=== PATIENT | male | born 1970 | race Caucasian/White ===

== ENCOUNTER 2017-06-11 13:01 | Observation (INO) | payer OTHER ==
[2017-06-11] MEDS: ONDANSETRON 4 MG/2 ML VIAL IVP ONE (13:41)
--- NOTE | 2017-06-11 13:45 | EDPHY ---
H & P Stated Complaint: RUQ pain Time Seen by Provider: 06/11/17 13:22 - Personal History Current Tetanus/Diphtheria Vaccine: Yes Current Tetanus Diphtheria and Acellular Pertussis (TDAP): Yes - Medical/Surgical History Hx Asthma: No Hx Chronic Respiratory Disease: No Hx Diabetes: No Hx Cardiac Disease: Yes Hx Renal Disease: No Hx Cirrhosis: No Hx Alcoholism: No Hx HIV/AIDS: No Hx Splenectomy or Spleen Trauma: No Other PMH: HTN, asthma,. ?genetic defect of coronary artery - Social History Smoking Status: Never smoked Constitutional: Initial Vital Signs Temperature (C) 36.7 C 06/11/17 13:18 Heart Rate 93 06/11/17 13:18 Respiratory Rate 16 06/11/17 13:18 Blood Pressure 134/80 H 06/11/17 13:18 O2 Sat (%) 97 06/11/17 13:18 O2 Delivery Mode Room Air Allergies/Adverse Reactions: Penicillins Allergy (Unknown, Verified 06/11/17 13:17) Sulfa (Sulfonamide Antibiotics) Allergy (Unknown, Verified 06/11/17 13:17) Home Medications: Medication Instructions Recorded Aspirin [Aspirin 81mg (*)] 81 mg PO BID 11/04/13 [place]-3 Fatty Acids [Fish Oil 1000 1,000 mg PO BID 11/04/13 mg (*)] Magnesium Oxide [Magnesium] 400 mg PO HS 03/03/16 Metoprolol Tartrate [Lopressor 25 25 mg PO BID 03/03/16 mg (*)] Multivitamins [Multivitamin (*)] 1 tab PO DAILY 03/03/16 Lisinopril 10 mg PO DAILY #30 tablet 03/04/16 Atorvastatin Calcium [Lipitor 10 10 mg PO DAILY 06/11/17 mg (*)] Ubidecarenone [Coenzyme Q10] 200 mg PO BID 06/11/17 Medical Decision Making - Diagnostics Imaging Results: Imaging Impressions Abdomen Ultrasound 06/11/17 13:50 Impression: 1. Gallbladder sludge without evidence of cholecystitis. 2. Probable fatty infiltration of the liver. 3. Simple right renal cyst. Findings discussed with Kojo Boykin MD, on 06/11/2017 at 14:43. Hepatobiliary Scan Nuclear Medicine 06/11/17 15:06 Impression: 1. Gallbladder dysfunction. 2. No scintigraphic evidence of acute or chronic cholecystitis or biliary obstruction. Findings discussed with Emergency Department physician, Kojo Boykin MD at 06/11/2017 18:00. Imaging: Discussed imaging studies w/ call center consultant Radiologist ED Course/Re-evaluation: CHIEF COMPLAINT: "Knife to the gallbladder" HISTORY OF PRESENT ILLNESS: This patient is a 46 year old male arriving with his complaining of severe abdominal pain beginning this morning. On waking this morning, he felt nauseous , but had coffee and went to work as usual around 6:15am. His nausea worsened and he developed epigastric pain. He left work and arrived home around 11:30, and his pain continued to become more severe. He rates his discomfort at 10/10 severity at that time, and felt febrile with associated chills. He vomited around 12:15 which relieved his pain slightly. Now, his pain is returning, and he rates it around 6/10 severity. It does not change with movement. He continues to feel nauseous. He has similar episodes of upper abdominal pain in 2012 and 2014 which were less severe. He denies any prior abdominal surgery. He denies any recent illness, diarrhea, chest pain, shortness of breath, or other associated symptoms. REVIEW OF SYSTEMS: A 10 point review of systems was performed and is negative with the exception of the elements mentioned in the history of present illness. PHYSICAL EXAM: HR, BP, O2 Sat, RR. Temp noted General Appearance: Alert, well hydrated, appropriate, and non-toxic appearing. Head: Atraumatic without scalp tenderness or obvious injury Eyes: Pupils equal, round, reactive to light and accommodation, EOMI, no trauma , no injection. Ears: Clear bilaterally, no perforation, normal landmarks Nose: Atraumatic, no rhinorrhea, clear. Throat: There is no erythema or exudates, no lesions, normal tonsils, mucus membranes moist. Neck: Supple, 2+ carotid upstroke, nontender, no lymphadenopathy. Respiratory: No retractions, no distress, no wheezes, and no accessory muscle use. Lungs are clear to auscultation bilaterally. Cardiovascular: Regular rate and rhythm, no murmurs, rubs, or gallops. Bilateral carotid, radial, dorsalis pedis, and posterior tibial pulses intact. Good capillary refill all extremities. Gastrointestinal: Epigastric tenderness. Fully reducible umbilical hernia. Not incarcerated. Abdomen is soft, non-distended. no masses, no rebound, no guarding, no peritoneal signs. Musculoskeletal: Normal active ROM of all extremities, atraumatic. Neurological: Alert, appropriate, and interactive. The patient has normal DTRs and non-focal cranial nerves, motor, sensory, and cerebellar exam. Skin: No rashes, good turgor, no nodules on palpation. Past medical history: Hypertension. Asthma. Umbilical hernia. Past surgical history: Noncontributory. Family history: Cholecystitis in mother, cholecystectomy in father. Social history: at bedside. PCP Dr. Denson. DIAGNOSTICS/PROCEDURES/CRITICAL CARE TIME: DIFFERENTIAL DIAGNOSIS: The differential diagnosis for the patient's abdominal pain included but was not limited to appendicitis, cholecystitis, hernias, testicular torsion, gastritis, and urinary tract infection. MEDICAL DECISION MAKING: This 46 y/o male presents with 8 hour history of epigastric and right upper quadrant pain with associated nausea. Exam reveals tenderness over the gallbladder. Plan for US gallbladder, labs including CBC, BMP, liver, lipase, coag. Plan to administer 1mg IV Dilaudid, 30mg IV Ketorolac, 1L IV NS for symptom relief. Elevated WBC 11.89 with left shift. Plan to administer 1 gram IV Ertapenem. 14:[address] Man, general surgeon. He will consult the patient. Liver and lipase not elevated. 14:[address] Baxter, radiologist. No evidence of cholelithiasis or other acute findings. 15:[address] Man, general surgeon. He requests HIDA study w/ pharmaceuticals. 15:45 Reassessed patent. Discussed imaging results. 17:[address] Vickers, radiologist. HIDA shows 8% ejection fraction. Surgical cutoff is 35%. Plan to consult with Dr. Man, general surgeon. 18:[address] Man, general surgeon. He will admit the patient for cholecystitis and perioperative care. 18:47 Reassessed patient. Discussed surgical intervention, admission. Dr. Man will consult. - Data Points Laboratory Results: Laboratory Results 06/11/17 13:37 06/11/17 13:37 06/11/17 06/11/17 06/11/17 13:37 13:37 13:37 WBC 11.89 10^3/uL H 10^3/uL (3.80-9.50) RBC 5.35 10^6/uL 10^6/uL (4.40-6.38) Hgb 16.4 g/dL g/dL (13.7-17.5) Hct 47.2 % % (40.0-51.0) MCV 88.2 fL fL (81.5-99.8) MCH 30.7 pg pg (27.9-34.1) MCHC 34.7 g/dL g/dL (32.4-36.7) RDW 12.6 % % (11.5-15.2) Plt Count 301 10^3/uL 10^3/uL (150-400) MPV 9.2 fL fL (8.7-11.7) Neut % (Auto) 90.6 % H % (39.3-74.2) Lymph % (Auto) 3.4 % L % (15.0-45.0) [place] % (Auto) 3.4 % L % (4.5-13.0) Eos % (Auto) 1.9 % % (0.6-7.6) Baso % (Auto) 0.3 % % (0.3-1.7) Nucleat RBC Rel Count 0.0 % % (0.0-0.2) Absolute Neuts (auto) 10.75 10^3/uL H 10^3/uL (1.70-6.50) Absolute Lymphs (auto) 0.41 10^3/uL L 10^3/uL (1.00-3.00) Absolute Monos (auto) 0.41 10^3/uL 10^3/uL (0.30-0.80) Absolute Eos (auto) 0.23 10^3/uL 10^3/uL (0.03-0.40) Absolute Basos (auto) 0.04 10^3/uL 10^3/uL (0.02-0.10) Absolute Nucleated RBC 0.00 10^3/uL 10^3/uL (0-0.01) Immature Gran % 0.4 % % (0.0-1.1) Immature Gran # 0.05 10^3/uL 10^3/uL (0.00-0.10) PT 13.3 SEC SEC (12.0-15.0) INR 0.99 (0.83-1.16) APTT 23.4 SEC SEC (23.0-38.0) Sodium 140 mEq/L mEq/L (134-144) Potassium 4.3 mEq/L mEq/L (3.5-5.2) Chloride 104 mEq/L mEq/L (97-110) Carbon Dioxide 24 mEq/l mEq/l (22-31) Anion Gap 12 mEq/L mEq/L (8-16) BUN 14 mg/dL mg/dL (7-23) Creatinine 1.1 mg/dL mg/dL (0.7-1.3) Estimated GFR > 60 Glucose 96 mg/dL mg/dL (70-100) Calcium 9.6 mg/dL mg/dL (8.5-10.4) Total Bilirubin 1.2 mg/dL mg/dL (0.1-1.4) Conjugated Bilirubin 0.2 mg/dL mg/dL (0.0-0.5) Unconjugated Bilirubin 1.0 mg/dL mg/dL (0.0-1.1) AST 26 IU/L IU/L (17-59) ALT 43 IU/L IU/L (21-72) Alkaline Phosphatase 80 IU/L IU/L (38-126) Total Protein 7.3 g/dL g/dL (6.3-8.2) Albumin 4.5 g/dL g/dL (3.5-5.0) Lipase 66 IU/L IU/L (23-300) Medications Given: Discontinued Medications Ertapenem (Invanz) 1 gm IVP EDNOW ONE PRN Reason: Protocol Stop: 06/11/17 13:52 Last Admin: 06/11/17 14:26 Dose: 1 gm Hydromorphone HCl (Dilaudid) 1 mg IVP EDNOW ONE Stop: 06/11/17 13:47 Last Admin: 06/11/17 13:58 Dose: 1 mg Sodium Chloride (Ns) 1,000 mls @ 0 mls/hr IV EDNOW ONE; Wide Open PRN Reason: Protocol Stop: 06/11/17 13:47 Last Admin: 06/11/17 13:59 Dose: 1,000 mls Ketorolac Tromethamine (Toradol) 30 mg IVP EDNOW ONE Stop: 06/11/17 13:47 Last Admin: 06/11/17 13:58 Dose: 30 mg Ondansetron HCl (Zofran) 4 mg IVP EDNOW ONE Stop: 06/11/17 13:30 Last Admin: 06/11/17 13:41 Dose: 4 mg Departure - Departure Disposition: [facility] Inpatient Acute Clinical Impression: Acute cholecystitis Condition: Fair Report Scribed for: Kojo Boykin Report Scribed by: Lula Bartlett Date of Report: 06/11/17 Time of Report: 13:45
[2017-06-11] MEDS ORDERED: HYDROmorphONE/DILAUDID 1 MG/ML INJ IVP ONE (13:46)
[2017-06-11] MEDS ORDERED: KETOROLAC 30 MG/1 ML SDV IVP ONE (13:46)
[2017-06-11] MEDS ORDERED: NS 1,000 ML IV ONE (13:46)
[2017-06-11] MEDS ORDERED: ERTAPENEM 1 GM VIAL IVP ONE (13:51)
[2017-06-11] MEDS ORDERED: KETOROLAC 30 MG/1 ML SDV ONE (13:52)
[2017-06-11 13:59] LABS: % IMMATURE GRANULYOCYTES 0.4 % (0.0-1.1); ABSOLUTE IMMATURE GRANULOCYTES 0.05 10^3/uL (0.00-0.10); ADD DIFF? NO; ADD MORPH? NO; ADD SCAN? NO; ATYPICAL LYMPHOCYTE FLAG 0 (0-99); FRAGMENT RBC FLAG 0 (0-99); HEMATOCRIT 47.2 % (40.0-51.0); HEMOGLOBIN 16.4 g/dL (13.7-17.5); LEFT SHIFT FLG 0 (0-99); LIPEMIA HEMOLYSIS FLAG 90 (0-99); MEAN CELL HEMOGLOBIN 30.7 pg (27.9-34.1); MEAN CELL HEMOGLOBIN CONCENTR. 34.7 g/dL (32.4-36.7); MEAN CELL VOLUME 88.2 fL (81.5-99.8); MEAN PLATELET VOLUME 9.2 fL (8.7-11.7); PLATELET CLUMPS FLAG 0 (0-99); PLATELET COUNT 301 10^3/uL (150-400); RED BLOOD CELL COUNT 5.35 10^6/uL (4.40-6.38); RED CELL DISTRIBUTION WIDTH 12.6 % (11.5-15.2)
[2017-06-11 14:05] LABS: ALANINE AMINOTRANSFERASE 43 IU/L (21-72); ALBUMIN 4.5 g/dL (3.5-5.0); ALKALINE PHOSPHATASE 80 IU/L (38-126); ANION GAP 12 mEq/L (8-16); ASPARTATE AMINOTRANSFERASE 26 IU/L (17-59); BILIRUBIN,TOTAL 1.2 mg/dL (0.1-1.4); BILIRUBIN-CONJUGATED 0.2 mg/dL (0.0-0.5); CALCIUM 9.6 mg/dL (8.5-10.4); CARBON DIOXIDE 24 mEq/l (22-31); CHLORIDE 104 mEq/L (97-110); CREATININE 1.1 mg/dL (0.7-1.3); GLOMERULAR FILTRATION RATE > 60; GLUCOSE 96 mg/dL (70-100); POTASSIUM 4.3 mEq/L (3.5-5.2); SODIUM 140 mEq/L (134-144); TOTAL PROTEIN 7.3 g/dL (6.3-8.2)
[2017-06-11 14:19] LABS: INR 0.99 (0.83-1.16); PROTIME(PATIENT) 13.3 SEC (12.0-15.0)
[2017-06-11 14:20] LABS: APTT 23.4 SEC (23.0-38.0)
[2017-06-11] MEDS ORDERED: SINCALIDE 5 MCG VIAL IJ ONE (15:30)
[2017-06-11] MEDS ORDERED: ONDANSETRON 4 MG/2 ML VIAL IVP PRN (18:10)
[2017-06-11] MEDS ORDERED: HYDROmorphone HCL/NS/PF 0.4 MG/2 ML SYR IVP PRN ×2 (18:10→23:26)
[2017-06-11] MEDS ORDERED: OXYCODONE/APAP 5/325 TAB PO PRN (18:10)
[2017-06-11] MEDS ORDERED: HYDROCODONE/APAP 5/325 TAB PO PRN (18:10)
[2017-06-11] MEDS: D5W 1/2 NS W/ 20 KCl/L 1,000 ML IV SCH (23:11)
[2017-06-11] MEDS ORDERED: D5W 1/2 NS W/ 20 KCl/L 1,000 ML IV SCH (23:30)
--- NOTE | 2017-06-11 23:33 | SOAPPROG ---
SOAP Progress Note Assessment/Plan: Assessment: 46 male with recurrent ruq pain and possible cholecystitis us neg for stones/ hida fills but 8% ef/ lfts ok/ wbc 12k nonicteric/ vs sable/ afebrile/ chest clear/ abd with ruq tenderness and guarding risks and options fully discussed Plan:admit for obs and possible lap kathrine 06/11/17 Objective: Vital Signs Temp Pulse Resp BP Pulse Ox 37.7 C 79 18 118/67 92 06/11/17 23:07 06/11/17 23:07 06/11/17 23:07 06/11/17 23:07 06/11/17 23:07 06/10/17 06/11/17 06/12/17 05:59 05:59 05:59 Intake Total 1000 Balance 1000 PT 13.3 SEC (12.0-15.0) 06/11/17 13:37 INR 0.99 (0.83-1.16) 06/11/17 13:37 ICD10 Worksheet Patient Problems: Problems Problem Status Onset Acute cholecystitis Acute Anomaly, circulatory system Acute Chest pain Acute
[2017-06-12 05:05] LABS: % IMMATURE GRANULYOCYTES 0.3 % (0.0-1.1); ABSOLUTE IMMATURE GRANULOCYTES 0.02 10^3/uL (0.00-0.10); ADD DIFF? NO; ADD MORPH? NO; ADD SCAN? NO; ATYPICAL LYMPHOCYTE FLAG 0 (0-99); FRAGMENT RBC FLAG 0 (0-99); HEMOGLOBIN 13.7 g/dL (13.7-17.5); LEFT SHIFT FLG 0 (0-99); LIPEMIA HEMOLYSIS FLAG 90 (0-99); MEAN CELL HEMOGLOBIN 30.2 pg (27.9-34.1); MEAN CELL HEMOGLOBIN CONCENTR. 34.3 g/dL (32.4-36.7); MEAN CELL VOLUME 88.3 fL (81.5-99.8); MEAN PLATELET VOLUME 9.5 fL (8.7-11.7); PLATELET CLUMPS FLAG 10 (0-99); PLATELET COUNT 237 10^3/uL (150-400); RED BLOOD CELL COUNT 4.53 10^6/uL (4.40-6.38); RED CELL DISTRIBUTION WIDTH 12.5 % (11.5-15.2)
[2017-06-12 05:19] LABS: ALANINE AMINOTRANSFERASE 35 IU/L (21-72); ALBUMIN 3.2 g/dL (3.5-5.0); ALKALINE PHOSPHATASE 54 IU/L (38-126); AMYLASE < 30 IU/L (30-110); ANION GAP 10 mEq/L (8-16); ASPARTATE AMINOTRANSFERASE 20 IU/L (17-59); BILIRUBIN,TOTAL 1.2 mg/dL (0.1-1.4); BILIRUBIN-CONJUGATED 0.2 mg/dL (0.0-0.5); CALCIUM 8.5 mg/dL (8.5-10.4); CARBON DIOXIDE 26 mEq/l (22-31); CHLORIDE 104 mEq/L (97-110); CREATININE 1.2 mg/dL (0.7-1.3); GLOMERULAR FILTRATION RATE > 60; GLUCOSE 96 mg/dL (70-100); POTASSIUM 4.3 mEq/L (3.5-5.2); SODIUM 140 mEq/L (134-144); TOTAL PROTEIN 5.9 g/dL (6.3-8.2)
[2017-06-12] MEDS: D5W 1/2 NS W/ 20 KCl/L 1,000 ML IV SCH (06:44)
[2017-06-12] MEDS ORDERED: LISINOPRIL 10 MG TAB PO SCH (09:00)
[2017-06-12] MEDS ORDERED: METOPROLOL TARTRATE 25 MG TAB PO SCH (09:00)
[2017-06-12] MEDS ORDERED: ATORVASTATIN CALCIUM 10 MG TAB PO SCH (09:00)
[2017-06-12] MEDS ORDERED: ERTAPENEM 1 GM VIAL IVP SCH (10:45)
[2017-06-12] MEDS ORDERED: PNEUMOCOCCAL 0.5ML VACCINE VIAL IM ONE (11:36)
--- NOTE | 2017-06-12 13:21 | PDANEPAE ---
ANE History of Present Illness 46 year old male for lap kathrine. ANE Past Medical History - Cardiovascular History Hx Hypertension: Yes Hx Chest Pain: Yes Cardiovascular History Comment: [place] Coronary Artery - Pulmonary History Hx COPD: No Hx Asthma/Reactive Airway Disease: Yes Hx Recent Upper Respiratory Infection: No Hx Oxygen in Use at Home: No Hx Sleep Apnea: Yes Sleep Apnea Screening Result - Last Documented: Positive Pulmonary History Comment: Childhood asthma - Endocrine History Hx Diabetes: No Hypothyroid: No Hyperthyroid: No Obesity: no - Renal History Hx Renal Disorders: No - Neurological & Psychiatric Hx Hx Neurological and Psychiatric Disorders: No - GI History GERD: no Hx Gastrointestinal Disorders: No - Chronic Pain History Chronic Pain: No ANE Review of Systems Review of systems is: negative Review of Systems: - Exercise capacity Exercise capacity: >=4 METS ANE Patient History - Allergies Allergies/Adverse Reactions: Penicillins Allergy (Unknown, Verified 06/11/17 13:17) Sulfa (Sulfonamide Antibiotics) Allergy (Unknown, Verified 06/11/17 13:17) - Home Medications Home medications: home medication list seen and reviewed Home Medications: RX: Aspirin [Aspirin 81mg (*)] 81 mg PO BID 11/04/13 [Last Taken 06/11/17 09:00] RX: [place]-3 Fatty Acids [Fish Oil 1000 mg (*)] 1,000 mg PO BID 11/04/13 [Last Taken 06/11/17 09:00] RX: Magnesium Oxide [Magnesium] 400 mg PO HS 03/03/16 [Last Taken 06/10/17] RX: Metoprolol Tartrate [Lopressor 25 mg (*)] 25 mg PO BID 03/03/16 [Last Taken 06/11/17 09:00] RX: Multivitamins [Multivitamin (*)] 1 tab PO DAILY 03/03/16 [Last Taken ] Atorvastatin Calcium [Lipitor 10 mg (*)] 10 mg PO DAILY 06/11/17 [Last Taken ] Ubidecarenone [Coenzyme Q10] 200 mg PO BID 06/11/17 [Last Taken 06/11/17 09:00] - NPO status NPO Status: no food or drink >8 hours NPO Since - Liquids (Date): 06/12/17 NPO Since - Liquids (Time): 06:00 NPO Since - Solids (Date): 06/12/17 NPO Since - Solids (Time): 06:00 - Anes Hx Anes Hx: no prior problems - Smoking Hx Smoking Status: Never smoked Marijuana use: No - Alcohol Use Alcohol Use: Occasionally - Family Anes Hx Family Anes Hx: neg - N/A ANE Labs/Vital Signs - Labs Result Diagrams: 06/12/17 04:27 06/12/17 04:27 - Vital Signs Vital Signs: reviewed preoperatively; see RN documention for details Blood Pressure: 116/75 Heart Rate: 57 Respiratory Rate: 16 O2 Sat (%): 99 Height: 195.58 cm Weight: 250 kg ANE Physical Exam - Airway Neck exam: FROM Mallampati Score: Class 2 - Pulmonary Pulmonary: no respiratory distress - Cardiovascular Cardiovascular: regular rate and rhythym - ASA Status ASA Status: II ANE Anesthesia Plan Anesthesia Plan: general endotracheal anesthesia Total IV Anesthesia: No
[2017-06-12] MEDS ORDERED: HEPARIN 1000 UNIT/1 ML MDV ONE ×2 (13:45→14:08)
[2017-06-12] MEDS ORDERED: BUPIVACAINE 0.5% 30 ML SDV ONE (13:45)
[2017-06-12] MEDS ORDERED: ceFAZolin 1 GM/5 ML SYR ONE (13:46)
[2017-06-12] MEDS ORDERED: MIDAZOLAM 2 MG/2 ML VIAL IVP ONE (13:54)
[2017-06-12] MEDS ORDERED: PROPOFOL/EMULSION 500 MG/50 ML BOTTLE IV ONE (14:03)
[2017-06-12] MEDS ORDERED: fentaNYL 100 MCG/2 ML INJ ONE ×2 (14:03→14:31)
[2017-06-12] MEDS ORDERED: DEXAMETHASONE 4 MG/ML VIAL ONE (14:28)
[2017-06-12] MEDS ORDERED: ONDANSETRON 4 MG/2 ML VIAL ONE (14:28)
--- NOTE | 2017-06-12 14:29 | PDHPUP ---
History & Physical Update H&P update statement: This history and physical update is based on an assessment of the patient which was completed after admission or registration (within 24 hours), but prior to the surgery/procedure. updated
[2017-06-12] MEDS ORDERED: ROCURONIUM 50 MG/5 ML VIAL ONE ×2 (14:32)
[2017-06-12] MEDS ORDERED: PHENYLEPHRINE HCL 100 MCG/ML SYR ONE (14:38)
[2017-06-12] MEDS ORDERED: PROPOFOL 200 MG/20 ML VIAL ONE (14:44)
[2017-06-12] MEDS ORDERED: fentaNYL 100 MCG/2 ML INJ IVP PRN (14:49)
[2017-06-12] MEDS ORDERED: OXYCODONE/APAP 5/325 TAB PO PRN (14:49)
[2017-06-12] MEDS ORDERED: ONDANSETRON 4 MG/2 ML VIAL IVP PRN (14:49)
[2017-06-12] MEDS ORDERED: LR 500 ML IV PRN (14:49)
[2017-06-12] MEDS ORDERED: NALOXONE HCL 0.4 MG/ML INJ IVP PRN (14:49)
[2017-06-12] MEDS ORDERED: HYDROmorphONE/DILAUDID 1 MG/ML INJ IVP PRN (14:49)
[2017-06-12] MEDS ORDERED: KETOROLAC 30 MG/1 ML SDV ONE (14:57)
[2017-06-12 15:36] VITALS: TEMP 99
--- NOTE | 2017-06-12 15:41 | ASMTCMCOM ---
CM Note CM Note Notes: Spoke w/RN, anticipate pt will dc home w/support of when medically stable. CM available for any changes. Date Signed: 06/12/2017 03:40 PM Electronically Signed By:Naye Oliva RN
[2017-06-12 16:26] VITALS: BP 124/73; O2SAT 96
[2017-06-12 16:27] VITALS: PULSE 71; RESP 14
--- NOTE | 2017-06-12 16:36 | POSTANESTH ---
Post Anesthetic Evaluation Cardiovascular Status: Normal, Stable, Similar to Pre-Op Cond Respiratory Status: Normal, Stable, Similar to Pre-op Cond. Level of Consciousness/Mental Status: Can Participate in Eval, Alert and Oriented Pain Control: Adequate, Prn Tx Ordered Nausea/Vomiting Control: Adequate, Prn Tx Ordered Complications Possibly Related to Anesthesia: None Noted
--- NOTE | 2017-06-12 17:02 | ASDISCHSUM ---
Discharge Information Plan Status:Home with No Needs Medically Cleared to Leave: Discharge Date:06/12/2017 03:58 PM CM D/C Disposition:Home, Routine, Self-Care ADT D/C Disposition:Home, Routine, Self-Care Projected Discharge Date:06/12/2017 03:58 PM Transportation at D/C: Discharge Delay Reason: Follow-Up Date:06/12/2017 03:58 PM Discharge Slot: Final Diagnosis: Placement Information Patient Contact Information Contact Name:ALANA Relationship: Address:[address] [place]:[facility] Phone: [facility]/Zip Code:[place] [address] Email: Financial Information Financial Class:[facility] Primary Plan Desc:[employer] LOCAL Primary Plan Number:[id number] Secondary Plan Desc: Secondary Plan Number: Assessment Information [facility] CM Progress Note CM Note CM Note Notes: Spoke w/RN, anticipate pt will dc home w/support of when medically stable. CM available for any changes. Date Signed: 06/12/2017 03:40 PM Electronically Signed By:Naye Oliva RN Intervention Information
--- NOTE | 2017-06-14 06:51 | GOP ---
[f rep st] OPERATIVE REPORT DATE OF OPERATION: 06/12/2017 SURGEON: Jamin Man MD BUSINESS ADMINISTRATION INSTRUCTOR: MATTHEW Hoskins ANESTHESIOLOGIST: Efrain Trevino MD PREOPERATIVE DIAGNOSIS: Acalculous cholecystitis and biliary dyskinesia. POSTOPERATIVE DIAGNOSIS: Acalculous cholecystitis and biliary dyskinesia, incarcerated umbilical hernia. PROCEDURE PERFORMED: 1. Laparoscopic cholecystectomy. 2. Open repair of umbilical incarcerated hernia. FINDINGS: Patient was found to have a distended gallbladder covered with adhesions, had a very small fibrotic looking cystic duct and normal cystic artery. The remainder of the ducts were normal. He also had a 1.5 cm umbilical hernia with incarcerated properitoneal fat. ESTIMATED BLOOD LOSS: From both procedures was less than 20 cc. He was taken to the recovery room in good condition. There were no complications. DESCRIPTION OF PROCEDURE: The patient is taken to the operating room where he received satisfactory general endotracheal anesthesia by Dr. Trevino. He was placed in the supine position, prepped and draped in usual sterile fashion. A transverse incision was made over the umbilical hernia defect. Dissection was extended down through the subcutaneous tissue and the sac was dissected free from its surrounding subcutaneous tissue, back to the fascia level where the sac was opened. A portion of the hernia sac was amputated after being ligated with 3-0 Vicryl tie. 10mm trocar was introduced and pneumoperitoneum was established. 3 other trocars were placed under direct vision. gallbladder was elevated and freed from adhesions. cystic triangle was carefully dissected free. clear view was obtained and the cystic duct and artery were hemoclipped and divided with care to avoid injury to the common duct which was clearly seen. gallbladder was then dissected free from hepatic fossa and extracted through the umbilical site. hemostasis was assured. The fascial edges were freshened up. The gallbladder had already been removed and the hernia defect was closed directly with interrupted 0 Surgilon in [id number] sutures. The wound was infiltrated with 0.5% Marcaine, subcu was closed with 3-0 Vicryl, and the skin with a 4-0 Monocryl subcuticular stitch. He tolerated the procedure well. There were no complications. /[id number]/MODL MTDD
--- NOTE | 2017-06-16 15:15 | GHP ---
[f rep st] PREOP HISTORY AND PHYSICAL DATE OF ADMISSION: 06/11/2017 HISTORY OF PRESENT ILLNESS: The patient is a 46-year-old male who is having recurrent right upper qu adrant pain and possible acalculous cholecystitis. His ultrasound was reveals a thickened gallbladde r, but no definite stone. LFTs are normal. His white count is elevated at 12,000. He had a HIDA sc an done in the ER, which reveals an ejection fraction of only 8%. He was admitted at this time [facility] of abdominal pain for further evaluation. The risks and options have been fully discussed, includ ing the failure to relieve his symptoms with cholecystectomy. PAST MEDICAL HISTORY: Reveals no major surgeries, except for orthopedic repair. Past history includ es hypertension and asthma. ALLERGIES: Include penicillin and sulfa. PRESENT MEDICATIONS: Metoprolol, aspirin, Lipitor, lisinopril, multivitamins, and CoQ10. FAMILY HISTORY: Noncontributory. REVIEW OF SYSTEMS: Reveals no additional medical problems on a full 10-point review of systems. Spe cifically, he does not smoke. Denies any cardiac symptoms. PHYSICAL EXAMINATION: GENERAL: An alert 46-year-old male who is in no acute distress and afebrile. VITAL SIGNS: Blood pressure 130/80. HEENT: Exam reveals him to be nonicteric with normal pupils, n o adenopathy, and no thyromegaly. NECK: Supple, nontender, without bruits. CHEST: Clear and symme tric. CARDIAC: Exam was a regular rhythm. ABDOMEN: Soft, slightly tender in the right upper quadr ant, with some fullness, mild distention. Positive bowel sounds. No obvious hernias. GENITALIA: N ormal. EXTREMITIES: Benign, with full pulses and full range of motion. SKIN: Intact, without lesi ons. NEUROLOGIC: Exam is physiologic and symmetric. IMPRESSION: Possible symptomatic acalculous cholecystitis. PLAN: Admit for observation and re-evaluation, possible laparoscopic cholecystectomy. The risks and options have been fully discussed, and he wishes to proceed. /[id number]/MODL
== END 2017-06-12 15:58 | disposition home or self-care (01) ==
LOC: F3E 19:55
PROVIDERS: ADMIT Surgery; ATTEND Surgery
DX: K81.0 Acute cholecystitis (principal); K42.0 Umbilical hernia with obstruction, without gangrene; K82.8 Other specified diseases of gallbladder; I10 Essential (primary) hypertension; J45.909 Unspecified asthma, uncomplicated; Z88.0 Allergy status to penicillin; Z88.2 Allergy status to sulfonamides; Z23 Encounter for immunization
CPT/HCPCS: 47562; 49587; 76705; 78227; A9537; G0378; J1100; J1170; J1335; J1885; J2250; J2370; J2405; J2704; J3010